=== PATIENT | male | born 1970 | race Caucasian/White ===

== ENCOUNTER 2019-09-02 05:08 | Day surgery (SDC) | payer OTHER ==
[2019-09-01 12:38] VITALS: BMI 23.5
[2019-09-02] MEDS ORDERED: LIDOCAINE HCL 1%, 10 MG/ML (20ML VIAL) ONE (07:50)
[2019-09-02] MEDS ORDERED: PROPOFOL 20 ML ONE ×2 (07:51)
[2019-09-02] MEDS ORDERED: BUPIVACAINE HCL/PF 0.5% (5 MG/ML) 30 ML VIAL IJ ONE ×3 (07:51→08:30)
[2019-09-02] MEDS ORDERED: MIDAZOLAM HCL 2 MG/2 ML SINGLE DOSE VIAL ONE (07:51)
[2019-09-02] MEDS ORDERED: SODIUM CHLORIDE 0.9% P/F 10 ML VIAL IJ ONE (07:52)
[2019-09-02] MEDS ORDERED: ceFAZolin SODIUM 1 GM VIAL ONE (07:52)
--- NOTE | 2019-09-02 08:09 | HP ---
Satellite [facility] - Chief Complaint Chief Complaint: left wrist mass - Past Medical History Allergies/Adverse Reactions: Allergies Allergy/AdvReac Type Severity Reaction Status Date / Time No Known Drug Allergies Allergy Verified 09/02/19 06:16 - Current Medications Current Medications: Home Medications Medication Instructions Recorded Hydrocodone/Acetaminophen 1 each PO Q6H #10 tablet MDD 4 09/02/19 [Hydrocodone-Acetamin 5-325 mg] Satellite Physical Exam - Physical Examination Vital Signs: Vital Signs Period Temp Pulse Resp BP Sys/Nguyen Pulse Ox Last 24 Hr 97.7 F-97.7 F 50-50 20-20 106-106/71-71 99 General Appearance: Well Nourished, Well Developed, Alert & Oriented x3 ENT: Clear Lung: Normal air movement Heart: Regular rate & rhythm Extremities: Other (left wrist- + mass, + ttp, nvi) Neurological: Intact, Alert, Oriented Satellite Impression/Plan - Impression/Plan Impression: left wrist mass Operative Procedure: left wrist mass excision Date to be Performed: 09/02/19
[2019-09-02] MEDS ORDERED: LIDOCAINE HCL/PF 2% SDV 5ML VIAL ONE (08:10)
[2019-09-02] MEDS ORDERED: GLYCOPYRROLATE 0.2 MG/1 ML VIAL ONE (08:10)
[2019-09-02] MEDS ORDERED: ceFAZolin SODIUM 1 GM VIAL IVPB ONE (08:12)
[2019-09-02] MEDS ORDERED: DEXAMETHASONE SOD PHOSPHATE 4 MG/1 ML VIAL ONE (08:23)
[2019-09-02] MEDS ORDERED: KETOROLAC TROMETHAMINE 30 MG/1 ML VIAL ONE (08:29)
[2019-09-02] MEDS ORDERED: LIDOCAINE HCL 1%, 10 MG/ML (20ML VIAL) NR ONE ×2 (08:30)
--- NOTE | 2019-09-02 09:20 | OP ---
Operative Note - Note: Operative Date: 09/02/19 Pre-Operative Diagnosis: left wrist mass, and bony carpal boss Operation: excision mass (likely ganglion) left wrist, and exision of carpal boss left wrist Findings: carpal boss Post-Operative Diagnosis: Same as Pre-op Surgeon: Alonso Wright Anesthesiologist/GREASE [employer] TALLOW PUMPER: George Capellan Anesthesia: General, Local Specimens Removed: mass/ganglion (ulnar styloid area), and bone/carpal boss Estimated Blood Loss (mls): 0 Drains, Volume Out (mls): 0 Blood Volume Replaced (mls): 0 Fluid Volume Replaced (mls): 500 Operative Report Dictated: Yes
[2019-09-02 09:57] VITALS: TEMP 97.5
[2019-09-02] MEDS ORDERED: ONDANSETRON 4 MG/2 ML VIAL IVPUSH PRN (10:53)
[2019-09-02] MEDS ORDERED: oxyCODONE HCL 5 MG TABLET PO PRN (10:53)
[2019-09-02] MEDS ORDERED: PROMETHAZINE HCL 25 MG/1 ML VIAL IVPUSH PRN (10:53)
[2019-09-02] MEDS ORDERED: LACTATED RINGERS SOLUTION 1,000 ML IV SCH (11:00)
[2019-09-02 12:08] VITALS: BP 123/75; PULSE 70
--- NOTE | 2019-09-02 14:51 | OP ---
DATE OF OPERATION: 09/02/2019 PREOPERATIVE DIAGNOSIS: Two masses, dorsal aspect, left wrist. POSTOPERATIVE DIAGNOSIS: Two masses, dorsal aspect, left wrist, likely ganglion cysts and carpal boss. PROCEDURE: Excision, ganglion cyst, left wrist and excision of bone, left wrist. DRAINS: None. COMPLICATIONS: None. SPECIMEN: Mass/ganglion cyst (near ulnar styloid) and carpal boss/bone (near triquetrum). BLOOD LOSS: None. BLOOD GIVEN: None. FLUID REPLACEMENT: 500 mL. This patient is a 48-year-old male with a preoperative diagnosis of 2 masses on the dorsal aspect of his left wrist, one near the ulnar styloid, one over the ulnar carpus. After understanding the potential risks, complications, alternatives, and benefits of surgery versus nonsurgical treatment, the patient elected to undergo this procedure. Patient was brought to the operating room. Peripheral IV placed. IV sedation given. Two grams of IV Ancef were given. At first, MAC anesthesia was attempted, but he was having some coughing/reflux, and, therefore, the anesthesiologist elected to put in an LMA. The entire case was done under 3.8 loupe magnification. The left upper extremity was prepped and draped in usual sterile fashion, elevated, exsanguinated with an Esmarch bandage. The tourniquet was inflated to 250 mmHg. Two longitudinal incisions were marked out over the 2 masses, and 15 mL 0.5% Marcaine and 1% lidocaine was injected in and around the surgical excision. A number 15 scalpel blade was utilized to make the incision over the ulnar head. Subcutaneous hemostasis was achieved with the bipolar cautery. Dissection was done down to the soft tissue mass which was coming up through the dorsal extensor retinaculum. The retinaculum was incised for later repair. A large ganglion cyst was noted on the dorsal aspect of the ulnar head. Litler scissors and a number 15 scalpel blade were utilized to do circumferential dissection down to the periosteum of the ulna which was where the ganglion cyst originated. It was passed off the field as specimen number 1. The area was copiously irrigated and washed out. Patient did have a prominent ulnar head with a dorsal osteophyte. Therefore, this was removed with the rongeur and smoothed down with a rasp. The area was copiously irrigated and washed out. I did not feel she had any other abnormal tissue. The periosteum was closed over the dorsal ulna with 4-0 undyed Vicryl. Final skin reapproximation was done with 4-0 undyed Vicryl in the deep dermal layer, and a running subcuticular 4-0 Biosyn stitch was used to close the skin. Next, our attention turned to the second mass which was more bony in feeling. A small incision was made with a number 15 scalpel blade directly over the bump. Dissection was done down to the dorsal aspect of the carpus. There was a large piece of bone approximately 1 cm long x 0.75 cm in length and about 0.5 cm deep, which was loose. It was a completely loose fragment. It was irregular. I looked like an old fracture. Off the carpus or a completely carpal boss. Circumferential dissection was done with a number 15 scalpel blade, and the rongeur was used to easily remove it. It was non-traumatic. The area was copiously irrigated and washed out. I was unable to feel or see any other abnormal tissue. The dorsal wrist capsule was closed with 4-0 undyed Vicryl in the deep dermal layer and a running subcuticular 4-0 Biosyn stitch. The area was then washed and dried. Both incisions covered with Steri-Strips, 4-x-4 gauze, fluffs between the fingers, Webril, and Coban. Tourniquet was taken down after total tourniquet time of about 28 minutes. There were no complications during the case. The patient tolerated the procedure quite well and was brought to the ambulatory recovery room in stable condition. Jovita [id number]
--- NOTE | 2019-09-06 17:47 | PATH ---
Surgical Pathology Report Patient Name: LILLIAN BOYER [facility]. Rec. #: [id number] /Age/Gender: 1970 (Age: 48) / M Account: [id number] Location: [facility] SURGICAL Taken: 09/02/2019 Received: 09/02/2019 Reported: 09/06/2019 Physicians: Alonso Wright M.D. Specimen(s) Received LEFT WRIST MASS Clinical History Mass left wrist Final Diagnosis WRIST MASS AND BONE, LEFT, EXCISION: GANGLION CYST. BONE WITH FOCAL BONE REMODELING AND REACTIVE CHANGES. Electronically Signed Katrin Charles M.D. Gross Description Received in formalin labeled "left wrist mass," are 2 navarro-yellow portions of soft tissue measuring 1.0 x 0.9 x 0.7 cm and 1.7 x 1.2 x 0.6 cm. Sectioning of the smaller portion of tissue reveals yellow bone. Sectioning of the larger portion of tissue reveals a cystic structure containing clear mucinous material. Kitchen Assistant sections are submitted in 2 cassettes as follows: 1-bone, following decalcification; 2-cyst. /09/03/2019 saudi/09/03/2019
== END 2019-09-02 11:10 | disposition home or self-care (01) ==
LOC: JASU-SURG 05:08
PROVIDERS: ATTEND Orthopaedic Surgery
PROC: 0PBN0ZZ Excision of Left Carpal, Open Approach (ICD-10-PCS; 2019-09-02)
PROC: 0LB60ZZ Excision of Left Lower Arm and Wrist Tendon, Open Approach (ICD-10-PCS; principal; 2019-09-02 08:00)
DX: M67.432 Ganglion, left wrist (principal); M25.732 Osteophyte, left wrist
CPT/HCPCS: 88304-TC; 94760